=== PATIENT | male | born 1995 | race Caucasian/White ===

== ENCOUNTER 2023-09-27 01:59 | Emergency (ER) | payer OTHER, SELFPAY ==
[2023-09-27 02:02] VITALS: BP 114/65
[2023-09-27 02:35] LABS: % Eosinophils 5.4 % (0-6); % Immature Granulocytes 0.2 % (0-0.5); % Neutrophils 52.4 % (42.2-75.2); Absolute Basophils 0.1 10^3/uL (0-0.2); Absolute Eosinophils 0.3 10^3/uL (0-0.7); Absolute Monocytes 0.4 10^3/uL (0.1-0.6); Absolute Neutrophils 3.1 10^3/uL (1.4-6.5); Hematocrit 39.1 % (39.0-52.0); Hemoglobin 13.9 g/dL (13.0-18.0); Mean Corp Hgb Conc. 35.5 g/dL (33.0-37.0); Mean Corpuscular Volume 89.9 fL (80.0-94.0); Mean Platelet Volume 9.6 fL (7.4-10.4); Nucleated Red Blood Cells % 0 % (-); Platelet Count 238 10^3/uL (130-400); Red Blood Cell Count 4.35 10^6/uL (4.70-6.10)
[2023-09-27 02:46] LABS: Urine Albumin Negative (Neg - Trace); Urine Bilirubin Negative (Negative); Urine Character Clear (Clear); Urine Color Yellow; Urine Glucose Negative (Negative); Urine Ketone Negative (Negative); Urine Leukocyte Negative (Negative); Urine Nitrite Negative (Negative); Urine Occult Blood Negative (Negative); Urine Urobilinogen Negative (Neg - 1+)
[2023-09-27 02:51] LABS: APTT 28.6 Sec (23.4-35.0); INR 0.99; PT 13.1 Sec (11.4-14.6)
[2023-09-27 03:03] LABS: ALT (SGPT) 23 U/L (0-50); AST (SGOT) 29 U/L (17-59); Albumin 4.5 g/dl (3.5-5.0); Alkaline Phosphatase 110 U/L (38-126); Blood Urea Nitrogen 7 mg/dl (9-20); Calcium 9.4 mg/dl (8.4-10.2); Carbon Dioxide 32 mmol/L (22-30); Chloride 102 mmol/L (98-107); Creatine Phosphokinase 92 U/L (55-170); Glucose 73 mg/dl (70-99); Lipase 129 U/L (23-300); Potassium 4.3 mmol/L (3.5-5.1); Sodium 137 mmol/L (135-145); Total Bilirubin 0.4 mg/dl (0.2-1.3); Total Protein 6.8 g/dl (6.3-8.2); eGFR > 60.00
--- NOTE | 2023-09-27 04:45 | ED.GENMED ---
History of Present Illness
General
Chief Complaint: Weight Changes
Source: patient and family
Exam Limitations: none
Time Seen by Provider: 09/27/23 02:51
Nursing documentation reviewed up to this point in time: agreed with
Travel History
Have you had any contact with someone who has COVID-19?: No
Do you have any symptoms of coronavirus? Fever > 100 degrees, chills, cough, shortness of breath, sore throat, loss of taste or smell, muscle aches, or headache?: No
History of Present Illness
History of Present Illness:
28-year-old male presents with muscle aches. Patient has a history of autism and has always been thin. Mom is concerned because he has had increased weight loss recently. Denies fever, chills, nausea or vomiting. He does have an eating disorder
and has been monitored some of his life. Patient was in therapy but had to discontinue it during COVID. Wishes to restart it but the recommended therapists are [facility] only and do not accept his insurance. He is working with [employer] and has
new resources for therapists. Patient states that he has been eating normally and his mom states that his weight fluctuates between 110 and 120 pounds. He is currently within that range. Patient has no other complaints at this time.
Past History
Past History
ED Past Medical History: Psychiatric (depression) and Other (aspergers)
ED Past Surgical History: None
Social History
Tobacco: Non-smoker
Alcohol: None
Drug: None
Personal: Single
Living: with family
Review of Systems
Review of Systems
Allergies reviewed?: Yes
Other source history: family
All Other Systems: ROS reviewed and negative except as documented in HPI and ROS
Constitutional: Reports no symptoms
EENT: Reports no symptoms
Respiratory: Reports no symptoms
Cardiac: Reports no symptoms
ABD/GI: Reports no symptoms
: Reports no symptoms
Musculoskeletal: Reports no symptoms
Skin: Reports no symptoms
Neurological: Reports no symptoms
Endocrine: Reports no symptoms
Hematologic/Lymphatic: Reports no symptoms
Psychiatric: Reports no symptoms
Phy Exam
General Physical Exam
General Presentation: well appearing and no apparent distress
General Skin: warm and dry
General Habitus: normal
General Mental: alert
General Hydration: appears well hydrated
ENT Exam
ENT Exam: EOMI, pharynx normal, neck supple and normocephalic
Eye Exam
Eye Exam: PERRL, cornea clear and conjunctiva normal
Cardiovascular Exam
Cardiovascular Exam: regular rate/rhythm, no edema, no murmur and normal peripheral pulses
Pulmonary Exam
Pulmonary Exam: lungs clear, no respiratory distress, no rales, no crackles, no rhonchi, no stridor, no wheezing and no cough
Gastrointestinal Exam
Gastrointestinal Exam: normal bowel sounds, non tender, soft, no organomegaly, no pulsatile mass and non distended
Neurological Exam
Neurological Exam: alert, oriented x3, no motor deficits and speech normal
Musculoskeletal Exam
Musculoskeletal Exam: full ROM and no edema
Skin Exam
Skin Exam: normal color, warm/dry, no rash and no petechia
Psychiatric Exam
Psychiatric Exam: normal mood/affect
Course
Orders/Labs/Results
Orders:
Orders
09/27/23 02:25
CPK [Creatine Phosphokinase] Urgent
Complete Blood Count/With Diff Urgent
Comprehensive Metabolic Panel Urgent
Lipase Urgent
PTT Urgent
Prothrombin Time Urgent
09/27/23 02:40
Urinalysis Reflex To Culture Urgent
Date Specimen was Collected: 09/27/23
Time Specimen was Collected: 02:38
Abnormal Lab Results
09/27/23
02:25
RBC 4.35 L 10^6/uL
(4.70-6.10)
MCH 32.0 H pg
(27.0-31.0)
Carbon Dioxide 32 H mmol/L
(22-30)
BUN 7 L mg/dl
(9-20)
09/27/23 02:25
09/27/23 02:25
Vital Signs
Initial and Last Documented VS:
Initial Vital Signs
Temp Pulse Resp BP Pulse Ox
97.9 F 92 20 114/65 99
09/27/23 02:02 09/27/23 02:02 09/27/23 02:02 09/27/23 02:02 09/27/23 02:02
Last Documented Vital Signs
Temp Pulse Resp BP Pulse Ox
97.9 F 92 20 114/65 99
09/27/23 02:02 09/27/23 02:02 09/27/23 02:02 09/27/23 02:02 09/27/23 02:02
*Pulse Oximetry
Patient hypoxic: no
*Critical Care Note
Total Time (30-74mins, 75-104mins- exclusive of procedures): Not Applicable
Patient Management
Social determinants of health affecting care: Living situation and Strong social support
Escalation/DeEscalation of care consider admission/obs:
Admission not indicated
ED Attending Note
-
Portions of this chart may have been created with voice recognition software.� Occasional wrong word or��sound alike� substitutions may have occurred due to the inherent limitations of voice recognition software.
Discharge Plan
Departure
Patient Disposition: Home (Routine Discharge)
Date of Disposition: 09/27/23
Time of Disposition: 04:56
Patient with high blood pressure during this ER visit?: Yes
Condition: Good
Discharge Problem:
Recent weight loss
Prescriptions:
No Action
escitalopram oxalate 10 MG tablet
20 mg PO DAILY
Referrals:
Yonatan Avilez DO [Family Provider] -
Activity Restrictions/Additional Instructions:
It was a pleasure meeting you and taking part in your care. We hope for your continued healing and wellness.
Please read discharge instructions in their entirety. However, they are for general education and may not describe your exact diagnosis at discharge. Information on your ER visit and medical conditions were discussed with you along with appropriate
follow up information...
If indicated, please take your medications as instructed and indicated on discharge paperwork.
Please schedule a follow up appointment as directed. Call to schedule an appointment
Please return to the emergency department with ANY change in, persisting, or worsening of symptoms. If any of your symptoms do not improve, or persist, or become more severe within 6-12 hours, please return to the emergency department for further
care.
Please return to the emergency department if you develop a headache, neck pain/stiffness, fever greater than 100.4F, chest pain, shortness of breath, persistent nausea, vomiting, slurred speech, difficulty walking, numbness/tingling, weakness, signs
of infection or any other symptoms that are worrisome to you.
If you have any questions or concerns please do not hesitate to call the Hospital at or E-mail me directly at [email or web address]
Interventions
Interventions:
*Risk Screen - Suicide Last Done: 09/27/23 02:03
*General Assessment Last Done: 09/27/23 02:55
*Neglect/Abuse Screening Last Done: 09/27/23 02:03
*ED COVID-19 Vaccine History Last Done: 09/27/23 02:03
Discharge Date and Time
Print Language: UKRAINIAN
[2023-09-27 05:50] VITALS: BP 98/73
== END 2023-09-27 05:20 | disposition home or self-care (01) ==
LOC: EMR 01:59
PROVIDERS: EMERGENCY PHYSICIAN Student in an Organized Health Care Education/Training Program; FAMILY PHYSICIAN Family Medicine
DX: R63.4 Abnormal weight loss (principal); M79.10 Myalgia, unspecified site; R03.0 Elevated blood-pressure reading, without diagnosis of hypertension; F84.5 Asperger's syndrome; F50.9 Eating disorder, unspecified; F41.9 Anxiety disorder, unspecified; F32.A Depression, unspecified; Z91.030 Bee allergy status; Z91.018 Allergy to other foods
CPT/HCPCS: 99283; 80053; 81003; 82550; 83690; 85025; 85610; 85730